=== PATIENT | female | born 1985 | race Caucasian/White ===

== ENCOUNTER 2021-07-29 15:15 | Inpatient (IN) | payer BC, SELFPAY ==
[~2021-07-29] VITALS: Ht 160 cm; Wt 68.0 kg
[2021-07-29] MEDS ORDERED: MIDAZOLAM 2 MG/2 ML VIAL ONE (15:30)
[2021-07-29] MEDS ORDERED: MORPHINE PRES FREE 10 MG/10 ML AMP IV ONE (15:31)
[2021-07-29] MEDS ORDERED: LACTATED RINGERS 1,000 ML IV SCH (15:35)
[2021-07-29 16:00] LABS: APPEARANCE,URINE CLEAR (CLEAR); BILIRUBIN,URINE NEGATIVE (NEGATIVE); BLOOD, URINE TRACE-I (NEGATIVE); COLOR,URINE YELLOW (YELLOW); LEUKOCYTE ESTERASE ,URINE NEGATIVE (NEGATIVE); NITRITE, URINE NEGATIVE (NEGATIVE); PH,URINE 6.5 (5.0-9.0); UGLUCOSE NEGATIVE (NEGATIVE)
[2021-07-29 16:08] LABS: BASOPHILS % (AUTO) 0.2 % (0.0-2.0); EOSINOPHILS % (AUTO) 0.1 % (0.0-4.0); HEMATOCRIT 36.7 % (36-48); HEMOGLOBIN 12.6 g/dL (12.0-16.0); LYMPHOCYTES # (AUTO) 1.7 K/uL (2.5-16.5); LYMPHOCYTES % (AUTO) 21.6 % (20.5-51.1); MEAN CORPUSCULAR HEMOGLOBIN 32 pg (27-31); MEAN CORPUSCULAR HGB CONC 34 g/dL (33-37); MEAN CORPUSCULAR VOLUME 94.6 fL (80-94); MONOCYTES # (AUTO) 0.7 K/uL (0.8-1.0); MONOCYTES % (AUTO) 8.2 % (1.7-9.3); NEUTROPHILS # (AUTO) 5.6 K/uL (1.8-7.7); NEUTROPHILS % (AUTO) 69.9 % (42.2-75.2); PLATELET COUNT (AUTO) 248 K/uL (140-450); RED BLOOD CELL COUNT(AUTO) 3.88 MIL/uL (4.20-5.40); RED CELL DISTRIBUTION WIDTH 13.2 % (11.6-13.7); WHITE BLOOD COUNT (AUTO) 8.1 K/uL (4.8-10.8)
[2021-07-29 16:12] LABS: ALBUMIN 2.9 g/dL (3.4-5.0); ANION GAP 13.1 (8-16); CREATININE 0.7 mg/dL (0.6-1.3); POTASSIUM 4.1 mmol/L (3.5-5.1); TOTAL BILIRUBIN 0.1 mg/dL (0.0-1.0)
[2021-07-29] MEDS ORDERED: NALBUPHINE 10 MG/ML AMP IVP PRN (16:45)
[2021-07-29] MEDS ORDERED: OXYTOCIN 20 UNITS in LACTATED RINGERS 1,000 ML IV SCH (16:45)
[2021-07-29] MEDS ORDERED: NALOXONE 0.4 MG/ML VIAL IVP PRN ×3 (16:45)
[2021-07-29] MEDS ORDERED: diphenhydrAMINE 50 MG/ML VIAL IVP PRN ×2 (16:45)
[2021-07-29] MEDS ORDERED: HYDROmorphone 1 MG/ML AMP IVP PRN (16:45)
[2021-07-29] MEDS ORDERED: MEPERIDINE 25 MG/ML SYR IVP PRN (16:45)
[2021-07-29] MEDS ORDERED: ONDANSETRON 4 MG/2 ML VIAL IVP PRN ×2 (16:45)
[2021-07-29] MEDS ORDERED: METHYLERGONOVINE 0.2 MG/ML AMP ONE (16:46)
[2021-07-29] MEDS ORDERED: MISOPROSTOL 200 MCG TAB ONE (16:58)
[2021-07-29] MEDS ORDERED: OXYTOCIN 20 UNITS/LR PREMIX 1,000 ML IV ONE (17:06)
[2021-07-29 17:35] VITALS: BP 136/87
[2021-07-29] MEDS ORDERED: METHYLERGONOVINE 0.2 MG/ML AMP IM PRN (17:35)
[2021-07-29] MEDS ORDERED: MEASLES, MUMPS, AND RUBELLA 1 VIAL SQVAC ONE (17:35)
[2021-07-29] MEDS ORDERED: PROMETHAZINE 25 MG/ML VIAL IVP PRN (17:35)
[2021-07-30] MEDS: KETOROLAC 30 MG/ML VIAL IM/IVP SCH ×3 (00:09→12:24)
[2021-07-30] MEDS ORDERED: OXYTOCIN 20 UNITS/LR PREMIX 1,000 ML IV ONE (02:41)
[2021-07-30] MEDS: OXYTOCIN 20 UNITS in LACTATED RINGERS 1,000 ML IV SCH ×2 (02:46→11:48)
[2021-07-30 05:31] LABS: BASOPHILS % (AUTO) 0.2 % (0.0-2.0); HEMATOCRIT 28.4 % (36-48); HEMOGLOBIN 9.9 g/dL (12.0-16.0); LYMPHOCYTES # (AUTO) 1.3 K/uL (2.5-16.5); LYMPHOCYTES % (AUTO) 11.5 % (20.5-51.1); MEAN CORPUSCULAR HEMOGLOBIN 33 pg (27-31); MEAN CORPUSCULAR HGB CONC 35 g/dL (33-37); MEAN CORPUSCULAR VOLUME 94.9 fL (80-94); MONOCYTES # (AUTO) 1.1 K/uL (0.8-1.0); MONOCYTES % (AUTO) 9.6 % (1.7-9.3); NEUTROPHILS # (AUTO) 8.8 K/uL (1.8-7.7); NEUTROPHILS % (AUTO) 78.7 % (42.2-75.2); PLATELET COUNT (AUTO) 199 K/uL (140-450); RED BLOOD CELL COUNT(AUTO) 2.99 MIL/uL (4.20-5.40); RED CELL DISTRIBUTION WIDTH 13.1 % (11.6-13.7); WHITE BLOOD COUNT (AUTO) 11.2 K/uL (4.8-10.8)
[2021-07-30] MEDS ORDERED: bisacodyL 10 MG SUPP RC SCH (09:00)
[2021-07-30] MEDS: oxyCODONE/APAP 5/325 MG 1 TAB TAB PO PRN (20:33)
[2021-07-31] MEDS: oxyCODONE/APAP 5/325 MG 1 TAB TAB PO PRN (04:49)
--- NOTE | 2021-07-31 07:28 | NUR ---
PATIENT HAS BEEN SCREENED AND CATEGORIZED LOW NUTRITION RISK. PATIENT WILL BE SEEN WITHIN 7 DAYS OF ADMISSION. 08/05/[address]
[2021-07-31] MEDS ORDERED: oxyCODONE/APAP 5/325 MG 1 TAB TAB PO PRN (11:00)
[2021-07-31] MEDS: IBUPROFEN 800 MG TAB PO PRN ×2 (14:37→22:00)
[2021-08-01] MEDS: IBUPROFEN 800 MG TAB PO PRN (06:35)
== END 2021-08-01 15:10 | disposition home or self-care (01) | DRG 788 ==
LOC: OBSVTOIN 15:15 → MLD 15:15 → MFCC 18:20
PROVIDERS: ADMIT Obstetrics & Gynecology; ATTEND Obstetrics & Gynecology
PROC: 10D00Z1 Extraction of Products of Conception, Low, Open Approach (ICD-10-PCS; principal; 2021-07-30)
DX: O76 Abnormality in fetal heart rate and rhythm complicating labor and delivery (principal); O32.2XX0 Maternal care for transverse and oblique lie, not applicable or unspecified; O34.13 Maternal care for benign tumor of corpus uteri, third trimester; Z20.822 Contact with and (suspected) exposure to COVID-19; D25.9 Leiomyoma of uterus, unspecified; Z3A.39 39 weeks gestation of pregnancy; Z37.0 Single live birth
CPT/HCPCS: 36415; 51702; 80053; 81003; 85025; 86592; 86886; 86900; 86901; J0690; J1200; J1885; J2210; J2250; J2270; J2590; J7060; J7120